=== PATIENT | female | born 1970 ===

== ENCOUNTER → 2025-01-23 | Outpatient (CLI) | payer MEDICAID | END | disposition home or self-care (01) | LOC: Rad HDHVI 14:31 | PROVIDERS: ATTEND Internal Medicine Cardiovascular Disease | DX: I08.1 Rheumatic disorders of both mitral and tricuspid valves (principal); R20.2 Paresthesia of skin | CPT/HCPCS: 93306 ==

== ENCOUNTER 2025-01-29 08:16 | Outpatient (CLI) | payer MEDICAID ==
[~2025-01-29] VITALS: Ht 172.7 cm; Wt 83.9 kg
[2025-01-29] MEDS ORDERED: ADENOSINE 90 MG/30 ML INJ IV ONE (08:54)
[2025-01-29] MEDS ORDERED: ADENOSINE 70 MG in GIVE UN-DILUTED 0 ML IV ONE (10:45)
== END 2025-01-29 17:00 | disposition home or self-care (01) ==
LOC: Rad HDHVI 08:16
PROVIDERS: ATTEND Internal Medicine Cardiovascular Disease
DX: Z01.810 Encounter for preprocedural cardiovascular examination (principal); I49.1 Atrial premature depolarization; I49.3 Ventricular premature depolarization; I44.0 Atrioventricular block, first degree
CPT/HCPCS: 78452; 93017; A9500; J0153

== ENCOUNTER 2025-02-12 12:39 | Outpatient (CLI) | payer MEDICAID ==
[2025-02-12 12:35] VITALS: BP 123/82; PULSE 74; RESP 16; O2SAT 97
[2025-02-12 13:17] VITALS: BP 125/83; PULSE 69; RESP 16; O2SAT 97
== END 2025-02-12 17:00 | disposition home or self-care (01) ==
LOC: CHF HDHVI 12:39
PROVIDERS: ATTEND Internal Medicine Cardiovascular Disease
DX: N39.0 Urinary tract infection, site not specified (principal)
CPT/HCPCS: 96365; G0463; J0696

== ENCOUNTER 2025-02-13 13:57 | Outpatient (CLI) | payer MEDICAID ==
[2025-02-13 14:06] VITALS: BP 123/79; PULSE 86; RESP 16; O2SAT 99
[2025-02-13 14:42] VITALS: BP 122/72; PULSE 84; RESP 16; O2SAT 99
== END 2025-02-13 17:00 | disposition home or self-care (01) ==
LOC: CHF HDHVI 13:57
PROVIDERS: ATTEND Internal Medicine Cardiovascular Disease
DX: N39.0 Urinary tract infection, site not specified (principal)
CPT/HCPCS: 96365; G0463; J0696

== ENCOUNTER 2025-02-14 09:52 | Outpatient (CLI) | payer MEDICAID ==
[2025-02-14 09:55] VITALS: BP 130/84; PULSE 86; RESP 16; O2SAT 99
[2025-02-14 11:03] VITALS: BP 127/83; PULSE 69; RESP 16; O2SAT 99
== END 2025-02-14 17:00 | disposition home or self-care (01) ==
LOC: CHF HDHVI 09:52
PROVIDERS: ATTEND Internal Medicine Cardiovascular Disease
DX: N39.0 Urinary tract infection, site not specified (principal)
CPT/HCPCS: 96365; G0463; J0696